=== PATIENT | female | born 1930 | race Caucasian/White ===

== ENCOUNTER 2019-03-03 12:38 | Day surgery (SDC) | payer OTHER, BC | END 2019-03-03 13:38 | disposition home or self-care (01) | LOC: FINFUSION 12:38 → FM/S 12:42 → FINFUSION 13:38 | DX: E87.6 Hypokalemia (principal) ==

== ENCOUNTER 2019-06-18 11:07 | Emergency (ER) | payer OTHER ==
--- NOTE | 2019-06-18 11:20 | PDOC ---
History of Present Illness - General Chief Complaint: Back Pain Stated Complaint: FELL History Source: Patient Exam Limitations: No Limitations - History of Present Illness Initial Comments: 06/18/19 11:18 88 yo F h/o prior gi bleed, gerd, CHF on home oxygen, lives at [facility], here s/p trip and fall. pt was walking carrying a plate, and tripped over edge of carpet. states she was worried about dropping plate and fell down on her buttocks.. c/o minimal pain. . did not take anything prior to arrival. has been ambulating since fall. normall walks witha walker. no h/o prior back surgeies. no other complaints. did not hit head in her fall. no neck or extremity pain. 06/18/19 11:27 Past History - Past Medical History Allergies/Adverse Reactions: Allergies Allergy/AdvReac Type Severity Reaction Status Date / Time No Known Allergies Allergy Verified 06/18/19 11:19 Home Medications: Ambulatory Orders Allopurinol [Zyloprim -] 100 mg PO DAILY 06/18/19 Ferrous Sulfate [Iron] 325 mg PO DAILY 06/18/19 Hydrochlorothiazide 12.5 mg PO MOTH 06/18/19 Hydrochlorothiazide [Hctz -] 25 mg PO DAILY 06/18/19 Magnesium Oxide [Magnesium] 400 mg PO DAILY 06/18/19 Mirtazapine [Remeron -] 7.5 mg PO PRN PRN 06/18/19 Pantoprazole Sodium [Protonix] 40 mg PO DAILY 06/18/19 Potassium Chloride [K-Dur -] 20 meq PO SUTUWEFRSA 06/18/19 Potassium Chloride [K-Dur -] 30 meq PO SUTUWEFRSA 06/18/19 Potassium Chloride [K-Dur -] 40 meq PO MOTH 06/18/19 Sennosides [Senna-Extra] 17.2 mg PO DAILY 06/18/19 Torsemide [Demadex] 50 mg PO MOTH 06/18/19 Torsemide [Demadex] 100 mg PO DAILY 06/18/19 Anemia: Yes Cancer: Yes (bladder) CHF: Yes - Surgical History Appendectomy: Yes - Suicide/Smoking/Psychosocial Hx Smoking History: Former smoker Have you smoked in the past 12 months: No Number of Cigarettes Smoked Daily: 40 If you are a former smoker, when did you quit?: 30 YEARS AGO Hx Alcohol Use: No *Physical Exam - Physical Exam Comments: 06/18/19 11:19 head atraumatic. no cervical spine tenderness. lungs clear bilat heart rrr no mrg abd soft nt nd ext wwp. hips bilat from nontender. pelvis stable. no paraspinal m spasm or pain lumbosacral region. hips FROM knees ankle FROm nontender. nuero 5/5 all for ext. alert oriented x 3. 06/18/19 11:28 Medical Decision Making - Medical Decision Making 06/18/19 11:20 88 yo F s/p trip and fall. due to pt age will obtain plan xray r/o fracture.lumbosacral spine, pelvis. minimal pain on exam. tylenol for pain control. likely dc back to [facility]. 06/18/19 11:29 06/18/19 12:58 pt xray with compression deformity L2, due to absence of pain on palpation and ability to ambulate without pain presumed to be old. dc home. to [facility]. tylenol as needed for pain. xray pelvis no acute fracture. *DC/Admit/Observation/Transfer Diagnosis at time of Disposition: Fall - Discharge Dispostion Disposition: HOME Condition at time of disposition: Good Decision to Admit order: No - Referrals Referrals: Delmy Aden MD [Primary Care Provider] - - Patient Instructions Printed Discharge Instructions: How to Prevent Falls Additional Instructions: you may be sore later today or tomorrow. if you have pain you can take tylenol 500 mg every 6 hrs as needed. you should followup with your regular doctor. return for any problems or concerns .your xray of your pelvis and spine are negative for any broken bones. - Post Discharge Activity
[2019-06-18 11:42] VITALS: BP 99/69; PULSE 98; TEMP 97.5; BMI 19.5
[2019-06-18] MEDS ORDERED: ACETAMINOPHEN 325 MG TABLET (FP) ONE (12:08)
[2019-06-18] MEDS: ACETAMINOPHEN 325 MG TABLET (FP) PO ONE ×2 (12:10→12:30)
== END 2019-06-18 12:33 | disposition home or self-care (01) ==
LOC: FER 11:07
DX: Z04.3 Encounter for examination and observation following other accident (principal); W18.39XA Other fall on same level, initial encounter; Y93.89 Activity, other specified; Y92.89 Other specified places as the place of occurrence of the external cause; I50.9 Heart failure, unspecified; K21.9 Gastro-esophageal reflux disease without esophagitis; I25.10 Atherosclerotic heart disease of native coronary artery without angina pectoris; Z87.891 Personal history of nicotine dependence
CPT/HCPCS: 72100-TC-FY; 72170-TC-FY; 99282-25